=== PATIENT | male | born 1980 | race Caucasian/White ===

== ENCOUNTER → 2018-08-03 14:18 | Outpatient (CLI) | payer MEDICAID, SELFPAY ==
--- NOTE | 2018-08-03 14:20 | RAD_ITS ---
STUDY: X-RAY - RIGHT KNEE REASON FOR EXAM: Male, 37 years old. Pain after fall. TECHNIQUE: 4 view(s) of the knee. COMPARISON: None. FINDINGS: Normal visualized distal femur. Normal visualized proximal tibia and fibula. Normal proximal tibiofibular articulation. There is no acute fracture, dislocation or destructive osseous pathology. Normal medial femorotibial compartment. There is mild degenerative arthrosis of the lateral femorotibial compartment. There is mild degenerative arthrosis of the patellofemoral articulation. There is no demonstrated joint effusion. The soft tissue structures are unremarkable. RAD/Knee 4 or More Views IMPRESSION: Degenerative arthrosis. Electronically Signed: Kevin Hargrove DO at 23:18 EDT Tel [phone], Service support ,
== END ==
PROVIDERS: Family Provider Internal Medicine; PCP Internal Medicine; Visit Provider Physician Assistant
DX: M25.561 Pain in right knee (principal)
CPT/HCPCS: 73564

== ENCOUNTER 2018-08-14 09:00 | Outpatient (RCR) | payer MEDICAID, SELFPAY ==
--- NOTE | 2018-08-10 09:53 | HP.PTEVAL ---
Patient's Visit Information KARIE DANIELLE is a 37 year old M referred to Physical Therapy by LAITH Price with a diagnosis of R knee pain. Date of Evaluation: 08/10/18 Physical Therapist: Corbin Munson PT, - Visit Plan Frequency: 2-3x /Week Duration: 3 Weeks Plan: R LE strengthening, balance and proprio ex's, core stab ex's, bike, and HEP - Subjective Subjective: Pt reports he fell 2 years ago and hit his R knee into a rock. Pt reports the pain did eventually get better, but he notes everytime he sits for a while and ateempts to get up and walk, his knee is stiff and sore. Pt notes he had xrays taken, but never heard any of the results. denies R knee locking up or giving out, but it does click when he walks. Pt reports he is not limited with any of his activities, but his knee aches all the time. Sleep difficulty if he doesnt take aleve before bed. 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 No T or N in R LE. Pt reports most of his pain is on the ant/lat aspect of L upper tibia. 6/10 pain at rest, 8/10 at worst. - Pain R knee Pain Intensity (Out of 10): 6 Pain Intensity Range: 8 - Objective Neuro: B LE sensation is WNL to light touch. B achilles reflex= 1/3. Palpation: Pt is very tender along the lateral joint line of R knee. No obvious deformity present at this time. No crepitus with AROM. Girth at joint line: L knee 38.5 cm, R knee 39.5 cm. ROM: L knee 0-105; R knee 0-115. MMT: B LE's are grossly 5/5 throughout. Special testing: Mild pain with mcmurrys test. - Goals Goal 1:: Decrease R knee pain x 50% to aid with sleep Goal Time Frame: 2-4 Weeks Goal 2:: Pt will be able to sit for a prolonged period and stand up without being limited by pain Goal Time Frame: 2-4 Weeks Goal 3:: I with HEP Goal Time Frame: 2-4 Weeks - Rehabilitation Potential Physical Therapy Diagnosis: R knee pain and difficulty with sleep secondary to a chronic R knee injury. Rehabilitation Potential: Good - Anticipated Interventions Patient/Client Instruction: Educate patient on: Condition, Plan of Care For the Purpose of:: To improve self management Therapeutic Exercise to Include: Strength training, Endurance training, Balance training, Active ROM, Dynamic Lumbar Stabilization For the Purpose of:: To decrease pain, To improve muscle performance and motor function, To improve gait and locomotor functions Cryotherapy (ice pack, ice massage): Yes For the Purpose of:: To decrease pain Thank you for the opportunity to evaluate your patient. For Medicare and Medicare HMO plans, please review the plan of care and approve it. It will need to be FAXED BACK to us at [phone] for Medicare purposes. Please let me know if there are questions or concerns regarding this plan of care. Physician Signature: Date:
--- NOTE | 2018-10-08 15:36 | HP.PT.NRP ---
HP - Discharge Summary (1) - Patient Information KARIE DANIELLE was seen in my office for initial evaluation on 08/10/18. The following Plan of Care was established for this patient: Initial Frequency: 2-3x /Week Initial Duration: 3 Weeks - Anticipated Interventions Patient/Client Instruction: Educate patient on: Condition, Plan of Care For the Purpose of:: To improve self management Therapeutic Exercise to Include: Strength training, Endurance training, Balance training, Active ROM, Dynamic Lumbar Stabilization For the Purpose of:: To decrease pain, To improve muscle performance and motor function, To improve gait and locomotor functions Cryotherapy (ice pack, ice massage): Yes For the Purpose of:: To decrease pain This patient was last seen in our office . Pertinent comments regarding their Physical therapy will appear below: Pt was treated for one followup PT visit for his R knee pain on the date of 08/14/18. Pt no showed for his next appointment, and has not returned through todays date. Pt is therefore discontinued at this time. At this point I will be discontinuing this patient from physical therapy. I would be happy to see this patient again in the future if found appropriate by the physician. Thank you! Corbin Munson, PT,
== END 2018-08-14 19:00 | disposition home or self-care (01) ==
LOC: PT 09:00
PROVIDERS: Family Provider Internal Medicine; PCP Internal Medicine; Visit Provider Physician Assistant
DX: M25.561 Pain in right knee (principal)
CPT/HCPCS: 97110; 97161

== ENCOUNTER 2021-03-29 12:18 | Emergency (ER) | payer BC, SELFPAY ==
[2021-03-29 12:19] VITALS: BP 140/89; PULSE 82; RESP 16; TEMP 35.1; O2SAT 98; BMI 36.5
--- NOTE | 2021-03-29 13:06 | CT_ITS ---
STUDY: CT ABDOMEN AND PELVIS WITHOUT CONTRAST REASON FOR EXAM: Male, 40 years old. Kidney Stone. Left flank pain since this morning. RADIATION DOSAGE (If Supplied By Facility): CTDIvol = ( 19.80 ) mGy, DLP = ( 1044.93 ) mGycm TECHNIQUE: Transaxial images were obtained from the dome of the diaphragm to the symphysis pubis without oral contrast, and without intravenous contrast. Sagittal and coronal images were reconstructed. Individualized dose optimization techniques were used for this CT. COMPARISON: None. FINDINGS: The visualized lung bases are unremarkable. The visualized portions of the heart are within normal limits. Normal liver. Normal gallbladder and extrahepatic biliary system. Normal spleen. Normal pancreas. Normal bilateral adrenal glands. Normal right kidney. Left perinephric stranding. Punctate calculus in the lower pole calyx of the left kidney. Mild degree of left hydronephrosis and left hydroureter due to a 2.5 mm calculus in the distal portion of the left ureter just proximal to the ureterovesical junction. Normal visualized stomach. Normal small intestine. Normal colon. The appendix is visualized and appears normal. There is scattered atherosclerotic calcification of the abdominal aorta, without a demonstrated aneurysm. Normal inferior vena cava. Normal retroperitoneum. The urinary bladder is empty. There is a small umbilical hernia containing fat. There are mild degenerative changes of the visualized lumbar spine. CT/Abdomen/Pelvis without Cont IMPRESSION: 2.5 mm calculus in the distal portion of the left ureter causing mild degree of left hydronephrosis and left hydroureter. Punctate calculus in the lower pole calyx of the left kidney. Electronically Signed: Alonzo Nash MD at 13:50 EDT , Service support ,
--- NOTE | 2021-03-29 13:09 | EDS_ITS ---
HPI History of Present Illness Chief Complaint: Flank Pain Narrative Narrative: 40-year-old male presenting with left flank pain. He states this started this morning suddenly. He has pain in his left flank that radiates to his left lower quadrant. He denies urinary complaints. He has no history of kidney stones. He denies injury. Denies fever. Denies other complaints. Prior similar symptoms: No Recent Illness/Hospitalization: No PFSH PFSH Medical History (Updated 03/29/21 @ 14:[address] Daria Edouard MD) Anxiety Depression Hypertension Home Medications hydrocodone-acetaminophen 1 tab PO Q6H PRN PRN 3 Days #10 tablet 03/29/21 [Rx Last Taken Unknown] Allergy/AdvReac Type Severity Reaction Status Date / Time No Known Allergies Allergy Verified 03/29/21 12:20 Social History (Updated 08/03/18 @ 16:36 by LAITH Jo) Smoking Status: Former smoker ROS ROS ED Constitutional Constitutional ED: Denies fever(s) Eyes Eyes: Denies change in vision ENT ENT ED: Denies rhinorrhea or sore throat Cardiovascular Cardiovascular: Denies chest pain or palpitations Respiratory/Chest Respiratory/Chest: Denies cough or dyspnea Gastrointestinal Gastrointestinal: Reports abdominal pain; Denies diarrhea, nausea or vomiting Genitourinary Genitourinary ED: Denies dysuria or hematuria Musculoskeletal Musculoskeletal: Reports back pain; Denies myalgias Integumentary Denies rash Neurologic Neurologic: Denies headache(s) EXAM Physical Exam Const Vital Signs: 03/29/21 12:19 Temperature 95.2 F L Temperature Source Temporal Pulse Rate 82 Respiratory Rate 16 Blood Pressure 140/89 H Blood Pressure Mean 106 Pulse Ox 98 Oxygen Delivery Method Room Air Positive well nourished and well developed General Appearance ED: well developed HEENT Reports normocephalic and head/scalp atraumatic Eyes PERRL and EOMs intact bilaterally Neck supple General: Negative for tenderness Chest Wall inspection of chest normal Resp normal respiratory effort and clear to auscultation bilaterally Cardio regular rate and regular rhythm GI non-distended GI Narrative: Mild left lower quadrant tenderness with no guarding or rebound Palpation: soft; Negative for guarding or rebound tenderness present no CVA tenderness Back/Spine no CVA tenderness Extremity normal to inspection Neuro oriented x3 Sensorium / Orientation: alert Psych mental status grossly normal Skin no rashes or lesions noted MDM MDM MDM Narrative Medical decision making narrative: Patient was given morphine, Zofran IV. On reevaluation, patient's pain is controlled. He is given prescription for [place]. He is advised to follow-up with Dr. Acosta. Advised to return to the ED for worsening complaints. Lab Data Attestation: I reviewed the patient's lab results. Labs: Laboratory Results - last 24 hr 03/29/21 13:14 Urine Color Yellow Urine Clarity Sl. Cloudy Urine pH 5.0 Ur Specific [place] 1.025 Urine Protein 30 H Urine Glucose (UA) Normal Urine Ketones Negative Urine Occult Blood 250 H Urine Nitrite Negative Urine Bilirubin Negative Urine Urobilinogen 1 H Ur Leukocyte Esterase 25 H Urine RBC > 100 SEEN Urine WBC 0-5 SEEN Ur Squamous Epith Cells 0 SEEN Urine Bacteria 1+ Urine Mucus 1+ Radiography Diagnostic Testing: Radiology Impression Abdomen/Pelvis CT 03/29/21 13:06 IMPRESSION: 2.5 mm calculus in the distal portion of the left ureter causing mild degree of left hydronephrosis and left hydroureter. Punctate calculus in the lower pole calyx of the left kidney. Electronically Signed: Alonzo Nash MD at 13:50 EDT , Service support , Discharge Plan Triage Chief Complaint: Flank Pain ED Provider: Daria Edouard Dx/Rx/DC Orders Clinical Impression: Urolithiasis Instructions: ED Kidney Stone w/ Colic Prescriptions: New hydrocodone-acetaminophen [hydrocodone-acetaminophen] 1 TABLET tablet 1 tab PO Q6H PRN PRN (Reason: Pain) 3 Days Qty: 10 RF: 0 Primary Care Provider: Perez Guerra Referrals: Akhil Acosta MD [STAFF PHYSICIAN] - Perez Guerra MD [Primary Care Provider] -
[2021-03-29] MEDS: Ondansetron 4 MG/2 ML Vial IV (13:12)
[2021-03-29] MEDS: Morphine 4 MG/ML Syringe IV (13:13)
[2021-03-29 13:22] LABS: Color, Urine Yellow (Yellow); Glucose, Dipstick Normal (Normal); Ketone-Dipstick Negative (Negative); Leukocyte Esterase-Dipstick 25 /ul (Negative); Nitrite-Dipstick Negative (Negative); Occult Blood-Urine 250 /ul (Negative); Protein-Dipstick 30 mg/dl (Negative); Specific Gravity, Urine 1.025 (1.002-1.030); Squamous Epithelial Cells - UA 0 SEEN /hpf (0-5); Urine Bilirubin Dipstick Negative (Negative); Urine Clarity Sl. Cloudy (Clear); Urine Urobilinogen 1 mg/dl (Normal)
[2021-03-29 13:35] LABS: Bacteria 1+ /hpf (None Seen); Mucous, Urine 1+ /hpf (<or=2+); Red Blood Cells-Urine > 100 SEEN /hpf (0-5); White Blood Cells 0-5 SEEN /hpf (0-5)
[2021-03-29 14:30] VITALS: BP 142/95; PULSE 75; RESP 16; O2SAT 98
== END 2021-03-29 14:32 | disposition home or self-care (01) ==
LOC: ED 13:29
PROVIDERS: Emergency Provider Emergency Medicine; PCP Internal Medicine
DX: N13.2 Hydronephrosis with renal and ureteral calculous obstruction (principal); I10 Essential (primary) hypertension; Z87.891 Personal history of nicotine dependence
CPT/HCPCS: 74176; 81001; 96374; 96375; 99283; A4216; J2405

== ENCOUNTER 2024-03-30 17:04 | Emergency (ER) | payer MEDICAID, SELFPAY ==
[2024-03-30 17:05] VITALS: BP 209/106; PULSE 111; RESP 19; TEMP 36; O2SAT 98; BMI 45.6
--- NOTE | 2024-03-30 17:45 | RAD_ITS ---
EXAM: XR LEFT SHOULDER COMPLETE, 2 OR MORE VIEWS CLINICAL INDICATION: injury TECHNIQUE: Two or more views of the left shoulder. COMPARISON: No relevant prior studies available. FINDINGS: BONES/JOINTS: Unremarkable. No acute fracture. No subluxation. Normal alignment. Preservation of the joint space. No sclerotic or destructive changes observed. SOFT TISSUES: Unremarkable. No soft tissue swelling or gas. No radiopaque foreign body. RAD/Shoulder min 2 Views IMPRESSION: Negative left shoulder x-rays. Electronically Signed: Leonardo Austin MD at 18:38 EDT ,
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
== END 2024-03-30 18:48 | disposition home or self-care (01) ==
PROVIDERS: Emergency Provider Emergency Medicine; PCP Family Medicine; Visit Provider Emergency Medicine
DX: S46.912A Strain of unspecified muscle, fascia and tendon at shoulder and upper arm level, left arm, initial encounter (principal); Z87.891 Personal history of nicotine dependence; I10 Essential (primary) hypertension; E66.9 Obesity, unspecified; V89.2XXA Person injured in unspecified motor-vehicle accident, traffic, initial encounter
CPT/HCPCS: 73030; 99282

== ENCOUNTER → 2024-06-18 | Outpatient (CLI) | payer OTHER, SELFPAY ==
[2024-06-18 14:55] LABS: Absolute Lymphocyte Count 2.14 X10^3/uL (0.83-4.51); Absolute Neutrophil Count 4.6 X10^3/uL (2.0-7.7); Basophil# 0.06 X10^3/uL; Basophil% 0.8 % (0-1); Eosinophil# 0.16 X10^3/uL; Eosinophils% 2.1 % (0-5); Hematocrit 42.4 % (40-54); Hemoglobin 14.2 g/dL (13.0-16.5); Lymphocyte # 2.14 X10^3/ul (0.83-4.51); Lymphocyte % 28.3 % (19-41); Mean Corp Hgb Conc 33.5 g/dL (32-36); Mean Corpuscular Hgb 29.6 pg (27.0-32.0); Mean Corpuscular Volume 88.5 fL (80-94); Mean Platelet Vol. 10.5 fl (6.2-12.0); Monocyte# 0.51 X10^3/uL; Monocyte% 6.7 % (0-10); NRBC Flagged by Analyzer 0 % (0-5); Neutrophil # 4.61 X10^3/uL (2.7-7.7); Platelet Count 220 K/mm3 (150-450); RBC Distribution Width CV 13.2 % (11.6-14.6); RBC Distribution Width SD 42.2 fl (35.1-43.9); Red Blood Count 4.79 M/mm3 (4.6-6.2); White Blood Count 7.6 K/mm3 (4.4-11.0)
[2024-06-18 15:11] LABS: D-Dimer Quantitative (DVT/PE) 0.29 FEU/ug/m (0.27-0.49)
[2024-06-18 15:18] LABS: ALB/GLOB Ratio 0.9 RATIO (0.9-2.4); AST(SGOT) 23 U/L (15-37); Alanine Aminotransfer ALT/SGPT 47 U/L (16-61); Albumin, Serum 3.6 g/dL (3.2-5.0); Alkaline Phosphatase 90 U/L (45-117); Anion Gap 3 (5-15); BUN 16 mg/dL (7-18); BUN/Creat Ratio 17.8 RATIO (10-20); Calcium,Total 8.6 mg/dL (8.5-10.1); Chloride 109 mmol/L (98-107); Cholesterol 182 mg/dL (200); EST Glomerular Filtration Rate 97 mL/min (>60); Est Glom Filt Rate - Afr Amer 117 mL/min (>60); Globulin 3.8 g/dL (2.2-4.2); Glucose 155 mg/dL (74-106); High Density Lipoprotein 31 mg/dL; Protein, Total 7.4 g/dL (6.4-8.2); Sodium Level 140 mmol/L (136-145); Triglycerides 210 mg/dL; Troponin-I HS 4 pg/mL (3.0-78.0); Very Low Density Lipoprotein 42 mg/dL (5-40)
== END | disposition home or self-care (01) ==
LOC: BIMLAB 13:59
PROVIDERS: PCP Family Medicine; Referring Provider Physician Assistant; Visit Provider Physician Assistant
DX: E66.9 Obesity, unspecified (principal); R07.9 Chest pain, unspecified; R06.00 Dyspnea, unspecified
CPT/HCPCS: 36415; 80053; 80061; 84484; 85025; 85379

== ENCOUNTER → 2024-07-07 | Outpatient (CLI) | payer OTHER, SELFPAY | END | disposition home or self-care (01) | LOC: PSN 06:44 | PROVIDERS: PCP Family Medicine; Referring Provider Physician Assistant; Visit Provider Physician Assistant | DX: R06.00 Dyspnea, unspecified (principal) | CPT/HCPCS: 94060; 94726; 94729 ==

== ENCOUNTER → 2024-07-14 | Outpatient (CLI) | payer OTHER, SELFPAY ==
--- NOTE | 2024-07-14 16:53 | RAD_ITS ---
HISTORY: pain. TECHNIQUE: XR Shoulder Min 2 Views. COMPARISON: 03/30/2024. FINDINGS: BONES : No acute fracture identified. Mineralization unremarkable. JOINTS: No dislocation. Mild degenerative change. Mild calcific tendinitis again seen. SOFT TISSUES: Left lung apex clear. RAD/Shoulder min 2 Views IMPRESSION: No acute fracture or dislocation identified in the left shoulder. Degenerative change. Electronically Signed: Venice Jenkins MD at 13:36 EDT ,
== END | disposition home or self-care (01) ==
LOC: MTRAD 16:39
PROVIDERS: PCP Family Medicine; Referring Provider Physician Assistant; Visit Provider Physician Assistant
DX: M25.512 Pain in left shoulder (principal)
CPT/HCPCS: 73030

== ENCOUNTER 2024-07-21 09:09 | Outpatient (RCR) | payer OTHER, SELFPAY ==
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
--- NOTE | 2024-09-02 12:28 | HP.PTDCNRP_ITS ---
Patient Information Patient Information: KARIE DANIELLE was seen in my office for initial evaluation on 07/21/24. The following Plan of Care was established for this patient: POC Established Initial Frequency: 2x /Week Initial Duration: 4-6 Weeks Anticipated Interventions Patient/Client Instruction: Educate patient on: Condition and Plan of Care For the Purpose of:: To decrease pain, To increase ROM, To improve muscle performance and motor function and To increase tolerance to activity/condition/position Therapeutic Exercise to Include: Strength training, Postural training, Flexibilty training, Gait and locomotor training and Active ROM For the Purpose of:: To decrease pain, To increase ROM, To improve muscle perfor demetrio and motor function, To increase tolerance to activity/condition/position and To improve gait and locomotor functions Manual Therapy Techniques to Include: Trigger point massage, Mobilization, Passive ROM and Soft tissue mobilization For the Purpose of:: To decrease pain, To increase ROM and To improve nutrient delivery to tissue Cryotherapy (ice pack, ice massage): Yes Ultrasound (thermal/non thermal): Yes (nonthermal) For the Purpose of:: To decrease pain, To decrease swelling/inflammation and To improve muscle performance and motor function Last Seen Last Seen: This patient was last seen in our office 07/21/24. Pertinent comments regarding their Physical therapy will appear below: Pt seen one visit of POC and did not schedule any further visits despite approval. At this point, it has been over 5 weeks and I will discontinue from my care. At this point I will be discontinuing this patient from physical therapy. I would be happy to see this patient again in the future if found appropriate by the physician. Thank you! Zhang Linder, DPT, OCS, CSCS Balance/Gait/Functional tests Balance/Special Test Scores Quick DASH Score: 18.1800
== END 2024-07-21 19:00 | disposition home or self-care (01) ==
LOC: PT 09:09
PROVIDERS: PCP Family Medicine; Referring Provider Physician Assistant; Visit Provider Physician Assistant
DX: S43.50XD Sprain of unspecified acromioclavicular joint, subsequent encounter (principal); M75.32 Calcific tendinitis of left shoulder
CPT/HCPCS: 97161